=== PATIENT | female | born 1960 | race Caucasian/White ===

== ENCOUNTER → 2016-07-25 | Outpatient (CLI) | payer OTHER | END | disposition home or self-care (01) | LOC: LAB 11:51 | PROVIDERS: ATTEND Nurse Practitioner Family | DX: E03.9 Hypothyroidism, unspecified (principal) | CPT/HCPCS: 36415; 84443 ==

== ENCOUNTER 2017-02-03 09:34 | Emergency (ER) | payer OTHER ==
[~2017-02-03] VITALS: Ht 165.1 cm; Wt 68.0 kg
[2017-02-03 09:41] VITALS: BP 138/88
[2017-02-03] MEDS ORDERED: ALBU8.5H8 INH (09:48)
[2017-02-03] MEDS ORDERED: LEVO112T2 PO (09:48)
[2017-02-03] MEDS ORDERED: DIPH25CA61 PO (09:48)
[2017-02-03] MEDS ORDERED: MONT10TA6 PO (09:48)
== END 2017-02-03 10:25 | disposition home or self-care (01) ==
LOC: ED 09:37
DX: S61.451A Open bite of right hand, initial encounter (principal); S61.253A Open bite of left middle finger without damage to nail, initial encounter; I10 Essential (primary) hypertension; Z88.0 Allergy status to penicillin; W55.01XA Bitten by cat, initial encounter; Y93.89 Activity, other specified; Y99.8 Other external cause status; Y92.009 Unspecified place in unspecified non-institutional (private) residence as the place of occurrence of the external cause
CPT/HCPCS: 99283

== ENCOUNTER → 2017-04-11 | Outpatient (CLI) | payer OTHER ==
[~2017-04-11] MED LIST: ALBU8.5H8 INH; DIPH25CA61 PO; LEVO112T2 PO; MONT10TA6 PO
== END | disposition home or self-care (01) ==
LOC: LAB 11:10
PROVIDERS: ATTEND Nurse Practitioner Family
DX: E03.9 Hypothyroidism, unspecified (principal)
CPT/HCPCS: 36415; 84443

== ENCOUNTER → 2017-06-28 | Outpatient (CLI) | payer OTHER ==
[2017-06-28 09:02] LABS: ALANINE AMINOTRANSFERASE 24 U/L (12-78); ALBUMIN 3.6 g/dL (3.4-5.0); ANION GAP 7 mmol/L (5-15); CALCIUM 8.9 mg/dL (8.5-10.1); CHLORIDE 109 mmol/L (98-107); CREATININE 0.95 mg/dL (0.55-1.02)
[2017-06-28 09:04] LABS: ALKALINE PHOSPHATASE 123 U/L (45-117); BILIRUBIN,TOTAL 0.8 mg/dL (0.2-1.0); TOTAL PROTEIN 7.3 g/dL (6.4-8.2)
== END | disposition home or self-care (01) ==
LOC: LAB 08:35
PROVIDERS: ATTEND Family Medicine
DX: R74.9 Abnormal serum enzyme level, unspecified (principal)
CPT/HCPCS: 36415; 80053; 84075; 84080

== ENCOUNTER → 2018-07-04 | Outpatient (CLI) | payer OTHER ==
[2018-07-04 08:22] LABS: BASOPHILS # (AUTO) 0.02 x10^3/uL (0-0.1); BASOPHILS % (AUTO) 0 % (0-1); EOSINOPHILS # (AUTO) 0.35 x10^3/uL (0-0.4); EOSINOPHILS % (AUTO) 8 % (1-7); LYMPHOCYTES # (AUTO) 1.14 x10^3/uL (1-3.4); LYMPHOCYTES % (AUTO) 25 % (22-44); MD NO; MEAN CORPUSCULAR HEMOGLOBIN 29.2 pg (27.0-34.8); MEAN CORPUSCULAR HGB CONC 33.1 g/dL (32.4-35.8); MEAN CORPUSCULAR VOLUME 88.2 fL (80-100); MEAN PLATELET VOLUME 6.4 fL (7.4-10.4); MONOCYTES # (AUTO) 0.38 x10^3/uL (0.2-0.8); MONOCYTES % (AUTO) 8 % (2-9); NEUTROPHILS # (AUTO) 2.74 x10^3/uL (1.8-6.8); NEUTROPHILS % (AUTO) 59 % (42-75); PLATELET COUNT 288 x10^3/uL (130-400); RED BLOOD COUNT 4.95 x10^6/uL (3.82-5.3); RED CELL DISTRIBUTION WIDTH 12.8 % (9.6-15.2)
[2018-07-04 08:31] LABS: ALBUMIN 3.6 g/dL (3.4-5.0); CALCIUM 8.5 mg/dL (8.5-10.1); CHOLESTEROL, TOTAL 211 mg/dL (140-239)
[2018-07-04 08:40] LABS: ALANINE AMINOTRANSFERASE 39 U/L (12-78); ALKALINE PHOSPHATASE 131 U/L (45-117); ANION GAP 5 mmol/L (5-15); BILIRUBIN,TOTAL 0.6 mg/dL (0.2-1.0); CHOL/HDL RATIO 3.7; HDL CHOL % 27 % (28-40); HDL CHOLESTEROL (DIRECT) 57 mg/dL (40-60); LDL CHOLESTEROL,CALCULATED 132 mg/dL (54-169); LDL/HDL RATIO 2.3 (0.5-3.0); TOTAL PROTEIN 7.2 g/dL (6.4-8.2); TRIGLYCERIDES 109 mg/dL (50-200); VLDL CHOLESTEROL 22 mg/dL (0-25)
[2018-07-04 08:41] LABS: CHLORIDE 112 mmol/L (98-107)
== END | disposition home or self-care (01) ==
LOC: LAB 08:06
PROVIDERS: ATTEND Family Medicine
DX: E03.9 Hypothyroidism, unspecified (principal); R74.9 Abnormal serum enzyme level, unspecified
CPT/HCPCS: 36415; 80053; 80061; 84439; 84443; 84480; 85025

== ENCOUNTER → 2018-07-16 | Outpatient (CLI) | payer OTHER | END | disposition home or self-care (01) | LOC: CFH 13:31 | PROVIDERS: ATTEND Family Medicine | DX: Z12.31 Encounter for screening mammogram for malignant neoplasm of breast (principal) | CPT/HCPCS: 77063; 77067 ==

== ENCOUNTER 2019-10-13 10:40 | Emergency (ER) | payer OTHER ==
[~2019-10-13] VITALS: Ht 165.1 cm; Wt 74.8 kg
--- NOTE | 2019-10-13 11:02 | NUR ---
TASK RN: PT C/O BODY ACHES, CURRY, AND FEVER X3 DAYS. PLACED VITAL SIGNS MONITOR. CALL LIGHT WITHIN REACH.
[2019-10-13 11:56] LABS: BASOPHILS # (AUTO) 0.02 x10^3/uL (0-0.1); BASOPHILS % (AUTO) 0 % (0-1); EOSINOPHILS # (AUTO) 0.02 x10^3/uL (0-0.4); EOSINOPHILS % (AUTO) 0 % (1-7); LYMPHOCYTES # (AUTO) 0.73 x10^3/uL (1-3.4); LYMPHOCYTES % (AUTO) 17 % (22-44); MD NO; MEAN CORPUSCULAR HEMOGLOBIN 29.4 pg (27.0-34.8); MEAN CORPUSCULAR HGB CONC 33.4 g/dL (32.4-35.8); MEAN CORPUSCULAR VOLUME 88.1 fL (80-100); MEAN PLATELET VOLUME 7.3 fL (7.4-10.4); MONOCYTES # (AUTO) 0.47 x10^3/uL (0.2-0.8); MONOCYTES % (AUTO) 11 % (2-9); NEUTROPHILS # (AUTO) 2.93 x10^3/uL (1.8-6.8); NEUTROPHILS % (AUTO) 71 % (42-75); PLATELET COUNT 251 x10^3/uL (130-400); RED BLOOD COUNT 4.68 x10^6/uL (3.82-5.3); RED CELL DISTRIBUTION WIDTH 12.4 % (9.6-15.2)
--- NOTE | 2019-10-13 12:14 | NUR ---
LABS, CXR COMPLETE. WAITING FOR RESULTS TO BE READ. VSS.
[2019-10-13 12:20] VITALS: BP 148/85
[2019-10-13 12:57] LABS: ALBUMIN 3.6 g/dL (3.4-5.0); ANION GAP 6 mmol/L (5-15); CALCIUM 8.5 mg/dL (8.5-10.1); CHLORIDE 110 mmol/L (98-107); CREATININE 0.93 mg/dL (0.55-1.02)
--- NOTE | 2019-10-13 13:00 | NUR ---
ASSUMING CARE OF PT. KAREL AT BEDSIDE.
== END 2019-10-13 13:31 | disposition home or self-care (01) ==
LOC: ED 12:13
DX: U07.1 COVID-19 (principal); J06.9 Acute upper respiratory infection, unspecified; B34.9 Viral infection, unspecified; M79.10 Myalgia, unspecified site; H92.02 Otalgia, left ear; I10 Essential (primary) hypertension; E03.9 Hypothyroidism, unspecified; J45.909 Unspecified asthma, uncomplicated; Z90.89 Acquired absence of other organs
CPT/HCPCS: 36415; 71045; 80048; 82040; 83605; 83880; 85025; 87040; 87635; 99284

== ENCOUNTER 2019-10-21 17:22 | Emergency (ER) | payer OTHER ==
[~2019-10-21] VITALS: Ht 165.1 cm; Wt 71.6 kg
--- NOTE | 2019-10-21 17:37 | NUR ---
PT REPORT FROM JESSIE NEWELL. PT CARE TO BE ASSUMED
--- NOTE | 2019-10-21 17:45 | NUR ---
DR BONILLA AT BS
--- NOTE | 2019-10-21 18:15 | NUR ---
CXR DONE. LABS DRAWN.
--- NOTE | 2019-10-21 18:19 | NUR ---
ADVISED TO GO TO ED FOR FURTHER EVAL. TEMP WON'T DECREASE. DECREASED SENSE OF SMELL & TASTE. + DIARRHEA. IS ALMOST DONE W/ 2ND Z-VA RX. HOME O2 SAT 90% RA. CURRENTLY DENIES PAIN, COUGH, N/V
[2019-10-21] MEDS ORDERED: DEXA6TAB6 PO (18:28)
[2019-10-21] MEDS ORDERED: RAMI2.5C28 PO (18:28)
[2019-10-21] MEDS ORDERED: AZIT500T10 PO (18:28)
[2019-10-21 18:35] LABS: ALBUMIN 2.8 g/dL (3.4-5.0); ANION GAP 8 mmol/L (5-15); CALCIUM 8.2 mg/dL (8.5-10.1); CHLORIDE 110 mmol/L (98-107); CREATININE 0.91 mg/dL (0.55-1.02)
[2019-10-21 18:39] LABS: BASOPHILS % (AUTO) 0 % (0-1); EOSINOPHILS % (AUTO) 0 % (1-7); LYMPHOCYTES % (AUTO) 3 % (22-44); MD NO; MEAN CORPUSCULAR HEMOGLOBIN 28.9 pg (27.0-34.8); MEAN CORPUSCULAR HGB CONC 32.9 g/dL (32.4-35.8); MEAN CORPUSCULAR VOLUME 87.8 fL (80-100); MEAN PLATELET VOLUME 7.4 fL (7.4-10.4); MONOCYTES # (AUTO) 0.23 x10^3/uL (0.2-0.8); MONOCYTES % (AUTO) 4 % (2-9); NEUTROPHILS # (AUTO) 5.64 x10^3/uL (1.8-6.8); NEUTROPHILS % (AUTO) 93 % (42-75); PLATELET COUNT 235 x10^3/uL (130-400); RED BLOOD COUNT 4.57 x10^6/uL (3.82-5.3); RED CELL DISTRIBUTION WIDTH 12.8 % (9.6-15.2)
[2019-10-21] MEDS ORDERED: POTASSIUM CHLORIDE 20 MEQ PACKET PO ONE (19:00)
[2019-10-21 19:04] VITALS: BP 102/63
[2019-10-21] MEDS ORDERED: POTASSIUM CHLORIDE 20 MEQ PACKET ONE (19:10)
--- NOTE | 2019-10-21 21:42 | NUR ---
Note loione in EDM - 10/21/19 at 2206 by MARIA EUGENIA PT FOUND SITTING ON CHAIR NEAR MAIN NURSES STATION. PER CLEANER SIGNS: PT'S DAUGHTER ON HER WAY TO [employer] WORK[employer] PT; DAUGHTER STATES PT HAS DEMENTIA AND IS UNABLE TO NAVIGATE A TAXI. DEMENTIA DX NOT MENTIONED BY PT NOR SPOUSE. DC INSTRUCTIONS DISCUSSED W/ PT. PT ADEMENTLY STATED THAT "I DO NOT HAVE A URINARY TRACT INFECTION! I DON'T KNOW WHY THESE DOCTORS THINK I DO!" WHILE JABBING HER FINGER AT THE INSTRUCTIONS. PT ANGRILY ASKED "WHAT DO THESE DOCTORS DO, GO HOME AND REPUBLICAN AT NIGHT?" THIS RN CHOSE NOT TO REPLY TO THAT QUESTION. DC DOCUMENT GIVEN TO PT. ASKED PT TO STAY IN HER CURRENT LOCATION UNTIL HER DAUGHTER ARRIVE.
== END 2019-10-21 19:45 | disposition home or self-care (01) ==
LOC: ED 17:54
DX: R50.9 Fever, unspecified (principal); R05 Cough; R42 Dizziness and giddiness; R06.02 Shortness of breath
CPT/HCPCS: 36415; 71045; 80048; 82040; 85025; 99284